=== PATIENT | female | born 1955 | race Caucasian/White ===

== ENCOUNTER 2016-06-25 05:20 | Day surgery (SDC) ==
[2016-06-23 15:00] LABS: MANUAL DIFF NEEDED? NO
[2016-06-23 15:09] LABS: BASO% 0.4 % (0.0-0.8); EOS# 0.11 X1000 (0.0-0.7); EOS% 1.3 % (0.0-10.0); HEMATOCRIT 37.2 % (37.0-47.0); HEMOGLOBIN 12.9 g/dL (12.0-16.0); IMM GRAN# 0.03 X1000 (0.0-0.04); IMM GRAN% 0.4 % (0.0-0.5); LYMPH# 2.83 X1000 (1.2-3.4); LYMPH% 33.1 % (20.5-51.1); MCH 31.8 PG (27-31); MCHC 34.7 g/dL (33-37); MCV 91.6 FL (81-99); MONO# 0.81 X1000 (0.11-0.59); MONO% 9.5 % (1.7-9.3); MPV 8.5 FL (7.4-10.4); NEUT% 55.3 % (42.2-75.2); PLT 379 X1000 (130-400); RBC 4.06 XMIL (4.2-5.4)
[2016-06-23 15:17] LABS: AGAP 12; BUN 16 mg/dL (8-22); CALCIUM 9.2 mg/dL (8.8-10.2); CHLORIDE 104 mmol/L (98-107); COSMO 286; POTASSIUM 4.1 mmol/L (3.5-5.1); SODIUM 142 mmol/L (136-145); TCO2 26 mmol/L (25-35)
--- NOTE | 2016-06-23 15:30 | EKG Report ---
Test Performed on : 06/23/2016 2:55:09 PM Test Reason : PAT Blood Pressure : / mmHG Vent. Rate : 088 BPM Atrial Rate : 088 BPM P-R Int : 176 ms QRS Dur : 080 ms QT Int : 370 ms P-R-T Axes : 040 026 015 degrees QTc Int : 447 ms Normal sinus rhythm. Normal ECG When compared with ECG of 22-NOV-2007 11:35, No significant change was found Confirmed by Madhu Sue MD ([id number]) on 06/23/2016 9:58:02 PM
[2016-06-25] MEDS ORDERED: PEPCID ONE (05:56)
[2016-06-25] MEDS ORDERED: KEFZOL 2 GM/D5W 50 ML ONE (05:56)
[2016-06-25] MEDS ORDERED: LR 1,000 ML ONE ×2 (05:56→09:58)
[2016-06-25] MEDS ORDERED: REGLAN ONE (05:56)
[2016-06-25] MEDS ORDERED: TRANSDERM-SCOP ONE (06:05)
[2016-06-25] MEDS ORDERED: NAROPIN 0.5% ONE (06:40)
[2016-06-25] MEDS ORDERED: VERSED ONE ×2 (06:47→06:52)
[2016-06-25] MEDS ORDERED: DIPRIVAN 1% ONE (09:12)
[2016-06-25] MEDS ORDERED: FENTANYL ONE (09:12)
[2016-06-25] MEDS ORDERED: MORPHINE ONE (09:28)
--- NOTE | 2016-06-25 09:37 | OPERATIVE NOTE ---
PROCEDURE DATE: 06/25/2016 PREOPERATIVE DIAGNOSIS: Left hallux valgus. POSTOPERATIVE DIAGNOSIS: Left hallux valgus. PROCEDURE: Left Lapidus fusion. SURGEON: Harris Jain MD. FRONT END ALIGNMENT SPECIALIST: SUZAN Javier. ANESTHESIA: General with LMA and preoperative popliteal block. TOURNIQUET TIME: Just over 60 minutes. IMPLANTS: [employer] biplanar plating system. DISPOSITION: To PACU, hemodynamically stable. INDICATION FOR PROCEDURE: Ms. Chantelle Mckeon is a 61-year-old female who I have seen a few times in my office. We have been working on pain in her foot. We discussed about fixing her bunion since it has been there for a long time and has been hurting her for a really long time as well. I went over with her the procedure, risks, benefits, and potential complications and she expressed understanding and wished to proceed. PROCEDURE: Ms. Mckeon was identified in the preop holding area. The left foot was marked out as the correct surgical site. She was then wheeled to the operating room and placed supine on the operating table. All bony prominences well padded. She was induced under general anesthesia. LMA was placed. Tourniquet was placed to the left thigh. Left lower extremity was then prepped with chlorhexidine gluconate scrub and then ChloraPrep. Draped in normal sterile fashion. Surgical pause was performed. We identified the correct patient, correct side, and the correct procedure. Preop antibiotics were given. Esmarch used to exsanguinate the left lower extremity and tourniquet inflated to 300 mmHg. Total tourniquet time was just over 60 minutes. I started with a dorsal incision over the 1st TMT joint which was confirmed with fluoroscopic imaging. Dissection was carried down. The EHL was retracted laterally. Capsulotomy was made at the 1st TMT joint and freed up the capsule from around the joint with an osteotome so that we could get our rotation correction. After this, I then used the [employer] Lapiplasty System to correct our IM angle and used the cutting blocks. I put those in place. Fluoroscopic imaging showed that we had good position with our cutting blocks. Made our cuts at the 1st TMT joint and then got out all of that bone. I then prepared the joints with a drill bit and an osteotome. At this point I also made a distal incision in that 1st web space and released soft tissues on the lateral side of the 1st MTP joint so I could get some good correction of the toe to get it back neutral so those cut tissues were not contracted down. After I did that and we reduced that 1st TMT joint on itself, actually everything looked really good. The sesamoids were reduced underneath the metatarsal head. The proximal phalanx was sitting very nicely on the metatarsal head as well. I did not feel I needed to do any work medially at the joint either as everything came back together very nicely. I got compression with some compression olive wires at that 1st TMT joint. Once I got everything positioned like I wanted it then we put our plates on, 1 dorsal and 1 medial, and then put a screw from 1 to 2 on the metatarsals. I then took out the compression screws. Everything stayed put very nicely. Simulated weightbearing in the OR showed very good position of our great toe and then simulated weightbearing AP and lateral views showed that we had a very good position of our 1st ray and good position of our implants. Everything was irrigated copiously with normal saline at this point. Zero Vicryl was used to close the deep layer over the 1st TMT joint and the plates and 2-0 Vicryl for the subcutaneous and a running Monocryl on the skin. Adaptic, 4 x 4s, ABD, soft roll posterior splint was applied. Tourniquet was let down. The patient had good capillary refill return to the toes. Patient was then awoke from general anesthesia, moved to her own bed, and taken to the PACU in stable condition. Postoperatively the patient will be nonweightbearing on the left lower extremity. I will see her in a week in the clinic.
[2016-06-25] MEDS ORDERED: PERCOCET-5 ONE (09:55)
[2016-06-25] MEDS ORDERED: ZOFRAN ONE (09:57)
[2016-06-25] MEDS ORDERED: NEO-SYNEPHRINE ONE (09:57)
[2016-06-25] MEDS ORDERED: DECADRON ONE (09:58)
[2016-06-25] MEDS ORDERED: ROBINUL ONE (09:58)
[2016-06-25] MEDS ORDERED: XYLOCAINE-MPF 2% ONE (09:58)
[2016-06-25 10:49] VITALS: BP 111/66
== END 2016-06-25 10:45 | disposition home or self-care (01) ==
LOC: OPS 05:20
PROVIDERS: ATTEND Orthopaedic Surgery
DX: M20.12 Hallux valgus (acquired), left foot (principal)
CPT/HCPCS: 76000; 80048; 85025; 93005; 93010; J0690; J1100; J2250; J2270; J2370; J2405; J2795; J3010; J7120